=== PATIENT | female | born 1960 | race Caucasian/White ===

== ENCOUNTER 2017-08-12 08:42 | Emergency (ER) | payer OTHER ==
[2017-08-12 09:13] VITALS: BP 107/72
--- NOTE | 2017-08-12 10:09 | UC ---
Ear Complaint HPI - HPI Summary HPI Summary: left ear pain and swelling , now erythema and tenderness has speed 3 cm to cheek - History of Current Complaint Chief Complaint: UCSkin Stated Complaint: EAR PAIN Time Seen by Provider: 08/12/17 09:59 Hx Obtained From: Patient ?: No Onset/Duration: Sudden Onset, Lasting Days - 5 days begining with small laceration inside of tragus Severity Initially: Mild Severity Currently: Moderate Aggravating Factors: Nothing Alleviating Factors: Nothing Associated Signs/Symptoms: Positive: Swelling @ - Allergies/Home Medications Allergies/Adverse Reactions: Allergies Allergy/AdvReac Type Severity Reaction Status Date / Time No Known Allergies Allergy Verified 08/12/17 09:09 PMH/Surg Hx/FS Hx/Imm Hx Previously Healthy: Yes - Surgical History Surgical History: Yes Surgery Procedure, Year, and Place: hemmeroid d/c x 3 - Family History Known Family History: Positive: None - Social History Occupation: Employed Full-time - rn at [employer] Lives: With Family Alcohol Use: Occasionally Substance Use Type: None Smoking Status (MU): Never Smoked Tobacco Review of Systems Constitutional: Negative Skin: Negative Eyes: Negative ENT: Negative, Ear Ache - left ear pain and external swelling , cheek is tender Respiratory: Negative Cardiovascular: Negative Gastrointestinal: Negative Genitourinary: Negative Motor: Negative Neurovascular: Negative Musculoskeletal: Negative Neurological: Negative Psychological: Negative Is Patient Immunocompromised?: No All Other Systems Reviewed And Are Negative: Yes Physical Exam Triage Information Reviewed: Yes Appearance: Well-Appearing, No Pain Distress, Well-Nourished Vital Signs: Initial Vital Signs Temp 97.8 F 08/12/17 09:10 Pulse 103 08/12/17 09:10 Resp 29 08/12/17 09:10 BP 107/72 08/12/17 09:10 Pulse Ox 100 08/12/17 09:10 Vital Signs Reviewed: Yes Eye Exam: Normal Eyes: Positive: Conjunctiva Clear ENT Exam: Normal ENT: Positive: Hearing grossly normal, Pharynx normal, Pharyngeal erythema, TMs normal, Other - left ear swollen -she has well has a small abrasion inside of tragus which seems to be where the irratation began. Negative: Normal ENT inspection, Nasal congestion, Tonsillar swelling, Tonsillar exudate, Trismus, Muffled voice, Hoarse voice, Dental tenderness Dental Exam: Normal Neck exam: Normal Neck: Positive: Supple, Nontender Respiratory Exam: Normal Respiratory: Positive: Chest non-tender, Lungs clear, Normal breath sounds, No respiratory distress, No accessory muscle use Cardiovascular Exam: Normal Cardiovascular: Positive: RRR, No Murmur, Pulses Normal, Brisk Capillary Refill Musculoskeletal Exam: Normal Musculoskeletal: Positive: Strength Intact, ROM Intact, No Edema Neurological Exam: Normal Neurological: Positive: Alert, Muscle Tone Normal Psychological Exam: Normal Skin Exam: Normal Ear Complaint Course/Dx - Course Course Of Treatment: warm compress, bactroban, bactrim follow with pcp - Differential Dx/Diagnosis Provider Diagnoses: Cellulitis left ear Discharge - Discharge Plan Condition: Stable Disposition: HOME Prescriptions: Mupirocin 2% CREAM* [Bactroban 2% CREAM*] 1 applic TOPICAL TID #1 tube Sulfamethox/Trimethoprim DS* [Bactrim DS 800/160 TAB*] 1 tab PO BID #20 tab Patient Education Materials: Cellulitis (DC), Warm Compress or Soak (ED) Referrals: [facility] [place] [facility] [Outside] - 3 Days
== END 2017-08-12 10:16 | disposition home or self-care (01) ==
LOC: UCEAST 08:42
DX: H60.12 Cellulitis of left external ear (principal)
CPT/HCPCS: 99212; G0463